=== PATIENT | male | born 1955 | race Caucasian/White ===

== ENCOUNTER → 2017-01-31 | Day surgery (SDC) | payer OTHER ==
[~2017-01-31] VITALS: Ht 185.4 cm; Wt 105.2 kg
[~2017-01-31] MED LIST: HYDROCHLOROTHIA25 M1 PO; LIALDA1.2 G1 PO
--- NOTE | 2017-01-31 11:33 | Operative Report ---
Operative/Inv Procedure Report Surgery Date: 01/31/17 Name of Procedure: Laparoscopic bilateral inguinal hernia repair Pre-Operative Diagnosis: Bilateral inguinal hernia Post-Operative Diagnosis: Same Estimated Blood Loss: scant Surgeon/Roll Bucker: TYLER CHAVES,FRANK Hess/Cait RODAS Anesthesia: general endotracheal tube Implants: Parietex mesh Operative/Procedure Note Note: After consent patient is brought to the operating room laid supine. General anesthesia was obtained and the abdomen was prepped and draped. Skin was anesthetized with local anesthesia and a transverse infraumbilical incision made sharply. We identified the rectus fascia and incised transversely. Stay sutures were placed. Rectus muscle was retracted laterally and a dissecting balloon placed posterior to it. It was inflated under direct vision the camera and replaced with a blunt Saavedra port. Gas was instilled. 2, 5 mm ports were placed in the infraumbilical midline after local anesthesia was instilled and under direct vision and camera. Began our dissection at the pubis and delineated the symphysis. Curt's ligament was identified and cleared. There is no direct hernia. Then dissected laterally and developed the iliopubic tract. The cord structures were circumferentially dissected. There was a large indirect hernia sac with associated cord lipoma. Both were extracted from the internal ring and reflected medially. Once the dissection was completed a right-sided piece of Parietex mesh was placed in the cavity. It was placed around the cord structures re-create the internal ring and cover the femoral and direct spaces as well. After the right side was completed. The left side was dissected in similar fashion. There was an indirect hernia on this side. No direct hernia was seen. Mesh was placed in a similar fashion. Gas was allowed to escape on maintaining proper orientation of the meshes. The fascia was closed with 0 Vicryl suture. Skin incisions closed with 4-0 Vicryl. Steri- Strips and sterile dressing applied. Sponge and needle counts are correct. Findings: Indirect CC: ROD CHAVES,JOSE
== END ==
LOC: STS 01:55
DX: K40.20 Bilateral inguinal hernia, without obstruction or gangrene, not specified as recurrent (principal); I10 Essential (primary) hypertension
CPT/HCPCS: C1781; J0131; J0690; J2250; J2405